=== PATIENT | female | born 1990 | race Hispanic/Latino ===

== ENCOUNTER → 2016-06-23 | Day surgery (SDC) | payer OTHER ==
[~2016-06-23] VITALS: Ht 154.9 cm; Wt 49.4 kg
--- NOTE | 2016-06-23 17:37 | Operative Report ---
Operative/Inv Procedure Report Surgery Date: 06/23/16 Name of Procedure: Removal ofNEXPLANON On from left arm an endometrial biopsy Pre-Operative Diagnosis: Metromenorrhagia Post-Operative Diagnosis: Same Estimated Blood Loss: less than 50ml Surgeon/Client Solutions Manager: YADIRA URENA MD Anesthesia: moderate sedation, block Operative/Procedure Note Note: She was taken the operating room placed in supine position on the left arm was prepped and draped in sterile fashion on after the patient received monitored sedation on a block with Marcaine was placed underneath the Nexplanon the skin was cut using a knife blunt dissection occurred using a snap sharp dissection occurred using Metzenbaums the Nexplanon was identified and removed hemostasis was apparent the skin was reapproximated using Steri-Strips at the end the case sterile dressing was applied at this point patient was placed in dorsosupine position to dorsolithotomy the vagina from dorsal fashion bladder was catheterized examination under anesthesia performed CO2 tenaculum placed on the Intralipid cervix and a Pipelle was placed into the cervical os specimen was sent to pathology patient was on since removed from the vagina patient was returned spine position awakened from anesthesia and transferred recovery room awake alert counts correct Findings: Normal-sized uterus no adnexal masses and NEXPLANON
== END ==
LOC: STS 02:35
DX: N92.1 Excessive and frequent menstruation with irregular cycle (principal); Z30.46 Encounter for surveillance of implantable subdermal contraceptive
CPT/HCPCS: 81025; 88305; J0131; J2250